=== PATIENT | female | born 1950 | race Caucasian/White ===

== ENCOUNTER 2022-05-08 21:01 | Inpatient (IN) | payer OTHER ==
[2022-05-08 21:47] LABS: HEMATOCRIT 16.2 % (32.4-45.2); MCHC 34.7 g/dl (32.0-36.0); MEAN CELL VOLUME 124.6 fl (80-96); MEAN PLT VOLUME 8.4 fl (7.5-11.1); PLATELET COUNT 87.1 10^3/uL (134-434); RDW 15.9 % (11.6-15.6); WHITE BLOOD COUNT 5.4 10^3/uL (4.0-10.8)
[2022-05-08 21:51] LABS: HEMOGLOBIN 5.6 G/dL (10.7-15.3); MCH 43.2 pg (25.7-33.7)
[2022-05-08 21:57] LABS: INR 1.14 (0.83-1.09); PROTHROMBIN TIME (PATIENT) 13.1 SEC (9.7-13.0)
[2022-05-08 22:03] LABS: ALBUMIN 3.7 g/dl (3.4-5.0); BILIRUBIN,TOTAL 0.4 mg/dl (0.2-1); CALCIUM 8.4 mg/dl (8.5-10); CREATININE 0.7 mg/dl (0.55-1.3); TOT PROT 6.1 g/dl (6.4-8.2)
[2022-05-08 22:14] LABS: ANISOCYTOSIS 1+; MACROCYTOSIS 2+
[2022-05-08 22:15] LABS: PLATELET ESTIMATE DECREASED
[2022-05-08 22:51] LABS: EPITHELIAL CELLS FEW /hpf
[2022-05-09] MEDS ORDERED: diphenhydrAMINE HCL 25 MG CAPSULE (FP) PO ONE (00:25)
[2022-05-09] MEDS ORDERED: SODIUM CHLORIDE 1,000 ML IV SCH (08:15)
[2022-05-09 09:52] LABS: HEMATOCRIT 17.1 % (32.4-45.2); MEAN CELL VOLUME 125.3 fl (80-96); MEAN PLT VOLUME 8.3 fl (7.5-11.1); PLATELET COUNT 84 10^3/uL (134-434); RBC 1.37 M/mm3 (3.60-5.2); RDW 17.8 % (11.6-15.6); WHITE BLOOD COUNT 4.2 K/mm3 (4.0-10.0)
[2022-05-09 10:06] LABS: MCH 41.3 pg (25.7-33.7)
[2022-05-09 10:12] LABS: CALCIUM 8.5 mg/dL (8.5-10.1)
[2022-05-09 10:13] LABS: ALBUMIN 3.4 g/dl (3.4-5.0); BLOOD UREA NITROGEN 10.6 mg/dL (7-18); HEMOGLOBIN 5.7 GM/dL (10.7-15.3)
[2022-05-09 10:16] LABS: CREATININE 0.7 mg/dL (0.55-1.3)
[2022-05-09 10:17] LABS: BILIRUBIN,TOTAL 0.4 mg/dL (0.2-1)
[2022-05-09 10:18] LABS: TOT PROT 6.3 g/dl (6.4-8.2)
[2022-05-09 11:00] LABS: TOTAL IRON BINDING CAPACITY 199 ug/dL (250-450)
[2022-05-09 11:01] LABS: IRON SERUM 60 ug/dL (50-175)
[2022-05-09 11:05] LABS: ANISOCYTOSIS 3+; MACROCYTOSIS 1+
[2022-05-09 12:20] LABS: HIV INTERPRETATION NEGATIVE (NEGATIVE)
[2022-05-09] MEDS ORDERED: ACETAMINOPHEN 1000 MG/100 ML BAG IVPB ONE (12:33)
[2022-05-09] MEDS: ACETAMINOPHEN 325 MG TABLET (FP) PO PRN (13:05)
[2022-05-09] MEDS: LEVOTHYROXINE NA 100 MCG TABLET (FP) PO SCH (13:05)
[2022-05-09] MEDS ORDERED: CEFEPIME 2 GM in DEXTROSE 5%-WATER 100 ML IVPB SCH (18:30)
[2022-05-09] MEDS ORDERED: CEFEPIME HCL 2 GM VIAL (RESTRICTED TO ID) ONE (21:25)
[2022-05-09] MEDS ORDERED: DEXTROSE 5%-WATER 100 ML IVPB ONE (21:26)
[2022-05-09 21:46] LABS: HEMATOCRIT 23.7 % (32.4-45.2); HEMOGLOBIN 8.1 GM/dL (10.7-15.3); MCH 36.1 pg (25.7-33.7); MCHC 34.2 g/dl (32.0-36.0); MEAN CELL VOLUME 105.4 fl (80-96); MEAN PLT VOLUME 8.2 fl (7.5-11.1); PLATELET COUNT 76 10^3/uL (134-434); RBC 2.24 M/mm3 (3.60-5.2); RDW 25.3 % (11.6-15.6); WHITE BLOOD COUNT 4.9 K/mm3 (4.0-10.0)
[2022-05-09] MEDS: CEFEPIME 2 GM in DEXTROSE 5%-WATER 100 ML IVPB SCH (22:03)
[2022-05-09 22:11] LABS: ANISOCYTOSIS 2+; MACROCYTOSIS 2+; OVALOCYTE 1+
[2022-05-09] MEDS ORDERED: MELATONIN 5 MG TABLETS PO SCH ×2 (22:24→22:45)
[2022-05-10] MEDS ORDERED: DEXTROSE 5%-WATER 100 ML IVPB ONE ×2 (02:46→10:11)
[2022-05-10] MEDS ORDERED: CEFEPIME HCL 2 GM VIAL (RESTRICTED TO ID) ONE ×2 (02:46→10:11)
[2022-05-10] MEDS: CEFEPIME 2 GM in DEXTROSE 5%-WATER 100 ML IVPB SCH ×2 (02:48→11:21)
[2022-05-10] MEDS: LEVOTHYROXINE NA 100 MCG TABLET (FP) PO SCH (06:18)
[2022-05-10] MEDS ORDERED: INSULIN (LEVEMIR) 100 UNITS/ML UNITS SQ ONE (06:54)
[2022-05-10 08:26] LABS: HEMATOCRIT 22.7 % (32.4-45.2); HEMOGLOBIN 8.1 GM/dL (10.7-15.3); MCH 37.2 pg (25.7-33.7); MCHC 35.5 g/dl (32.0-36.0); MEAN CELL VOLUME 104.7 fl (80-96); PLATELET COUNT 70 10^3/uL (134-434); RBC 2.17 M/mm3 (3.60-5.2); RDW 25.7 % (11.6-15.6); WHITE BLOOD COUNT 6.3 K/mm3 (4.0-10.0)
[2022-05-10 08:41] LABS: ACTIVATED PTT 30.8 SECONDS (25.2-36.5)
[2022-05-10 08:42] LABS: INR 1.14 (0.83-1.09); PROTHROMBIN TIME (PATIENT) 13.1 SEC (9.7-13.0)
[2022-05-10 08:46] LABS: CALCIUM 8.1 mg/dL (8.5-10.1)
[2022-05-10 08:47] LABS: BLOOD UREA NITROGEN 10.2 mg/dL (7-18); MAGNESIUM 2.1 mg/dL (1.8-2.4)
[2022-05-10 08:49] LABS: BILIRUBIN,TOTAL 0.9 mg/dL (0.2-1); TOT PROT 5.6 g/dl (6.4-8.2)
[2022-05-10 08:50] LABS: CREATININE 0.6 mg/dL (0.55-1.3); PHOSPHOROUS 3.9 mg/dL (2.5-4.9); URIC ACID 4.2 mg/dL (2.6-7.2)
[2022-05-10] MEDS: ACETAMINOPHEN 325 MG TABLET (FP) PO PRN (10:15)
[2022-05-10 14:16] VITALS: BP 131/79; PULSE 83; TEMP 98.5
[2022-05-10 16:12] LABS: PARV B19 IGG 2.9 index (0.0-0.8); PARV B19 IGM 0.1 index (0.0-0.8)
[2022-05-10] MEDS ORDERED: CEFEPIME 2 GM in DEXTROSE 5%-WATER 100 ML IVPB SCH (18:00)
[2022-05-10] MEDS ORDERED: MELATONIN 5 MG TABLETS PO SCH (22:00)
[2022-05-11 13:08] LABS: BABESIA MICROTI ANTIBODY IGG <1:10 (Neg:<1:10); BABESIA MICROTI ANTIBODY IGM <1:10 (Neg:<1:10)
[2022-05-11 17:06] LABS: FREE KAPPA,SERUM 31.4 mg/L (3.3-19.4)
== END 2022-05-10 17:15 | disposition left against medical advice (07) | DRG 811 ==
LOC: FER 21:01 → J6S 05-09 03:50 → OBSVTOIN 05-09 15:05
PROVIDERS: ADMIT Internal Medicine; ATTEND Internal Medicine
PROC: 30233N1 Transfusion of Nonautologous Red Blood Cells into Peripheral Vein, Percutaneous Approach (ICD-10-PCS; principal; 2022-05-09)
DX: D46.9 Myelodysplastic syndrome, unspecified (principal); U07.1 COVID-19; D53.9 Nutritional anemia, unspecified; D69.6 Thrombocytopenia, unspecified; D72.821 Monocytosis (symptomatic); E03.9 Hypothyroidism, unspecified; R63.4 Abnormal weight loss; D70.9 Neutropenia, unspecified; R16.1 Splenomegaly, not elsewhere classified; G89.29 Other chronic pain
CPT/HCPCS: 0241U-QW; 36415; 36430; 71045-TC-FY; 76700-TC; 80053; 81003; 81015; 82607; 82728; 82746; 82784; 82930; 83010; 83540; 83550; 83615; 83735; 83883; 84100; 84155; 84165; 84443; 84550; 85025; 85027; 85045; 85384; 85610; 85730; 86038; 86334; 86618; 86666; 86747; 86753; 86850; 86880; 86900; 86901; 86922; 87040; 87389; 87799; 88300-TC; 93005; 99285-25; G0378; P9058